=== PATIENT | male | born 1940 | race Caucasian/White ===

== ENCOUNTER 2017-07-13 08:27 | Day surgery (SDC) | payer MEDICARE, OTHER ==
[~2017-07-13 08:27] MED LIST: Cefuroxime 10 MG/ML SYRINGE EYELF SCH; Lidocaine 1% PF 2 ML SDV INJECT SCH; Pilocarpine 4% Ophth Soln 15 ML Bot EYELF SCH
[2017-07-13] MEDS: Polymyxin B/Trimethoprim 10 ML Bottle EYELF SCH ×3 (09:20→10:50)
[2017-07-13] MEDS: Brimonidine 0.2% Ophth Soln 5 ML Bottle EYELF SCH ×3 (09:25→10:50)
[2017-07-13] MEDS: Phenylephrine 2.5% Ophth Soln 2 ML Bot EYELF SCH ×5 (09:31→10:33)
--- NOTE | 2017-07-13 09:41 | PCM.PREANE ---
Preanesthetic Assessment - Anesthesia/Transfusion/Family Hx Anesthesia History: Prior Anesthesia Without Reaction Family History of Anesthesia Reaction: No Transfusion History: Prior Transfusion Without Reaction - Review of Systems General: No Symptoms Pulmonary: Other (hay fever ) Cardiovascular: No Symptoms Gastrointestinal: No Symptoms Neurological: Change in Speech, Gait Disturbance, Other (parkinsons disease, has DBS ) - Physical Assessment NPO Status Date: 07/12/17 NPO Status Time: 18:00 O2 Sat by Pulse Oximetry: 95 Respiratory Rate: 16 Vital Signs: Last Vital Signs Temp 36.8 C 07/13/17 09:10 Pulse 79 07/13/17 09:10 Resp 16 07/13/17 09:10 BP 151/71 H 07/13/17 09:10 Pulse Ox 95 07/13/17 09:10 Height: 1.83 m Weight: 70.307 kg ASA Class: 3 Mental Status: Alert & Oriented x3 Airway Class: Mallampati = 1 Dentition: Reports: Normal Dentition Thyro-Mental Finger Breadths: 3 Mouth Opening Finger Breadths: 5 ROM/Head Extension: Full Lungs: Clear to Auscultation, Normal Respiratory Effort Cardiovascular: Regular Rate, Regular Rhythm - Allergies Allergies/Adverse Reactions: Allergies Allergy/AdvReac Type Severity Reaction Status Date / Time No Known Allergies Allergy Verified 07/07/17 13:55 - Blood Blood Available: No - Acknowledgements Anesthesia Type Planned: MAC Pt an Appropriate Candidate for the Planned Anesthesia: Yes Alternatives and Risks of Anesthesia Discussed w Pt/Guardian: Yes Pt/Guardian Understands and Agrees with Anesthesia Plan: Yes PreAnesthesia Questionnaire Neurological History: Reports: Parkinson's - HOME MEDS Home Medications: Home Meds Acetaminophen [Tylenol] 650 mg PO Q4H PRN 07/12/17 [History] Aspirin 81 mg PO DAILY 07/12/17 [History] Doxazosin [Cardura] 1 mg PO DAILY 07/12/17 [History] Lutein/Minerals/Vit A,C & E [Ocuvite] 1 tab PO DAILY 07/12/17 [History] - CURRENT (IN HOUSE) MEDS Current Meds: Current Medications Brimonidine Tartrate (Alphagan 0.2% Ophth Soln) 0 ml EYELF ASDIRECTED ILIANA Stop: 07/13/17 18:00 Last Admin: 07/13/17 09:25 Dose: 1 drop Cefuroxime Sodium (Zinacef) 0 mg EYELF ASDIRECTED ILIANA Stop: 07/13/17 18:00 Lidocaine HCl (Xylocaine-Mpf 1%) 10 ml INJECT ASDIRECTED ILIANA Stop: 07/13/17 18:00 Phenylephrine HCl (Pancho-Synephrine 2.5% Ophth Soln) 0 ml EYELF ASDIRECTED ILIANA Stop: 07/13/17 18:00 Last Admin: 07/13/17 09:31 Dose: 1 drop Pilocarpine HCl (Pilocar 4% Ophth Soln) 0 ml EYELF ASDIRECTED ILIANA Stop: 07/13/17 18:00 Polymyxin/Trimethoprim Sulfate (Polytrim Ophth Soln) 0 ml EYELF ASDIRECTED ILIANA Stop: 07/13/17 18:00 Last Admin: 07/13/17 09:20 Dose: 1 drop Tetracaine HCl (Tetracaine 0.5% Steri-Unit Daniela) 0 ml EYELF ASDIRECTED ILIANA Stop: 07/13/17 18:00 Tropicamide (Mydriacyl 1% Ophth Soln) 0 ml EYELF ASDIRECTED ILIANA Stop: 07/13/17 18:00
[2017-07-13] MEDS: Tetracaine HCl/PF 0.5% 4 ML Bottle EYELF SCH ×2 (10:23→10:41)
--- NOTE | 2017-07-13 10:54 | PCM48HPAN ---
Post Anesthesia Note - EVALUATION WITHIN 48HRS OF ANESTHETIC Vital Signs in Normal Range: Yes Patient Participated in Evaluation: Yes Respiratory Function Stable: Yes Airway Patent: Yes Cardiovascular Function Stable: Yes Hydration Status Stable: Yes Pain Control Satisfactory: Yes Nausea and Vomiting Control Satisfactory: Yes Mental Status Recovered: Yes
== END 2017-07-13 11:02 | disposition home or self-care (01) ==
LOC: JD.SDS 08:27
PROVIDERS: ATTEND Ophthalmology
DX: H25.813 Combined forms of age-related cataract, bilateral (principal); H35.3131 Nonexudative age-related macular degeneration, bilateral, early dry stage; H35.363 Drusen (degenerative) of macula, bilateral; H16.223 Keratoconjunctivitis sicca, not specified as Sjogren's, bilateral; H16.103 Unspecified superficial keratitis, bilateral; H02.831 Dermatochalasis of right upper eyelid; H02.834 Dermatochalasis of left upper eyelid; G20 Parkinson's disease; Z87.891 Personal history of nicotine dependence; Z83.518 Family history of other specified eye disorder; Z79.82 Long term (current) use of aspirin; Z79.899 Other long term (current) drug therapy; Z98.890 Other specified postprocedural states
CPT/HCPCS: 66984; A9270; C1780; J0697